=== PATIENT | female | born 1960 | race Hispanic/Latino ===

== ENCOUNTER 2017-12-15 13:36 | Emergency (ER) | payer MEDICARE ==
[2017-12-15 13:37] VITALS: BMI 26.6
[2017-12-15 13:53] VITALS: TEMP 97.9
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
[2017-12-15] MEDS: Albuterol-Ipratrop 3 mg / 0.5 (3 ml) UD IH STA ×2 (14:14→14:17)
[2017-12-15] MEDS ORDERED: Albuterol 0.083% Inhal Sol (2.5 mg/3 mL) UD INH STA (14:45)
--- NOTE | 2017-12-15 15:51 | RAD ---
HISTORY: Shortness of breath. COMPARISON: 03/26/2017 FINDINGS: LUNGS: No active pulmonary disease. PLEURA: No significant pleural effusion identified, no pneumothorax apparent. CARDIOVASCULAR: No radiographic findings to suggest acute or significant cardiovascular disease. OSSEOUS STRUCTURES: No significant abnormalities. VISUALIZED UPPER ABDOMEN: Normal. OTHER FINDINGS: None. IMPRESSION: No active disease. No significant interval change compared to the prior examination(s).
[2017-12-15 16:43] VITALS: BP 124/46; PULSE 77; RESP 14; O2SAT 96
--- NOTE | 2017-12-16 16:04 | CARD ---
APPROVED REPORT EKG Measurement Heart [id number] [id number] <Conclusion> Normal sinus rhythm Normal ECG
== END 2017-12-15 16:30 | disposition home or self-care (01) ==
LOC: ED 13:36
DX: J44.9 Chronic obstructive pulmonary disease, unspecified (principal); J98.01 Acute bronchospasm; Z87.891 Personal history of nicotine dependence
CPT/HCPCS: 71045; 93005; 96374; 99284; J2930

== ENCOUNTER 2018-02-25 08:50 | Inpatient (IN) | payer MEDICARE, OTHER ==
[2018-02-25 08:50] VITALS: BMI 26.6
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
[2018-02-25] MEDS: Albuterol-Ipratrop 3 mg / 0.5 (3 ml) UD IH SCH ×4 (09:13→09:44)
--- NOTE | 2018-02-25 09:32 | RAD ---
HISTORY: copd COMPARISON: 12/15/2017 FINDINGS: LUNGS: No active pulmonary disease. PLEURA: No significant pleural effusion identified, no pneumothorax apparent. CARDIOVASCULAR: Normal. OSSEOUS STRUCTURES: No significant abnormalities. VISUALIZED UPPER ABDOMEN: Normal. OTHER FINDINGS: None. IMPRESSION: No active disease.
[2018-02-25 09:39] LABS: BASO # 0.07 K/mm3 (0.0-2.0); BASO % 0.6 % (0.0-3.0); EOS # 0.7 (0.0-0.7); EOS % 5.7 % (1.5-5.0); GRAN # 6.45 (1.4-6.5); GRAN % 55.2 % (50.0-68.0); HEMOGLOBIN 13.9 g/dL (12.0-16.0); LYMPH # 3.8 (1.2-3.4); LYMPH % 32.8 % (22.0-35.0); MEAN CELL VOLUME 91.5 fl (80.0-105.0); MEAN CORPUSCULAR HEMOGLOBIN 30.2 pg (25.0-35.0); MEAN CORPUSCULAR HGB CONC 32.9 g/dl (31.0-37.0); MEAN PLATELET VOLUME 9.1 fl (7.0-11.0); MONO # 0.7 (0.1-0.6); MONO % 5.7 % (1.0-6.0); RBC 4.61 10^6/uL (3.5-6.1); RED CELL DISTRIBUTION WIDTH 13.4 % (11.5-14.5); WHITE BLOOD COUNT 11.7 10^3/ul (4.5-11.0)
[2018-02-25 09:47] LABS: BLOOD UREA NITROGEN 10 mg/dL (7-21); CALCIUM 9.1 mg/dL (8.4-10.5); GFR AFRICAN-AMERICAN > 60; GFR NON-AFRICAN AMERICAN > 60
--- NOTE | 2018-02-25 10:50 | CARD ---
APPROVED REPORT EKG Measurement Heart [id number] [place] 130P83 [id number] <Conclusion> Normal sinus rhythm Right atrial enlargement Rightward axis Pulmonary disease pattern Abnormal ECG
[2018-02-25] MEDS ORDERED: Albuterol 0.083% Inhal Sol (2.5 mg/3 mL) UD IH STA (10:52)
[2018-02-25] MEDS ORDERED: Albuterol 0.083% Inhal Sol (2.5 mg/3 mL) UD ONE (11:02)
[2018-02-25] MEDS ORDERED: Pneumococcal 23-Valent Vaccine IM ONE (16:30)
[2018-02-25] MEDS: Albuterol-Ipratrop 3 mg / 0.5 (3 ml) UD IH PRN ×2 (18:05→22:40)
[2018-02-25] MEDS ORDERED: Albuterol 0.083% Inhal Sol (2.5 mg/3 mL) UD IH PRN (22:41)
[2018-02-26] MEDS ORDERED: MethylPREDNISolone 40 mg Vial IVP STA (00:32)
[2018-02-26] MEDS: Albuterol 0.083% Inhal Sol (2.5 mg/3 mL) UD IH PRN ×2 (04:08→14:54)
[2018-02-26] MEDS: Pantoprazole 40 mg EC Tab PO SCH (05:41)
[2018-02-26 06:26] LABS: HEMOGLOBIN 12.5 g/dL (12.0-16.0); MEAN CORPUSCULAR HEMOGLOBIN 29.6 pg (25.0-35.0); MEAN CORPUSCULAR HGB CONC 32.9 g/dl (31.0-37.0); MEAN PLATELET VOLUME 9.1 fl (7.0-11.0); RBC 4.22 10^6/uL (3.5-6.1); RED CELL DISTRIBUTION WIDTH 13.5 % (11.5-14.5)
[2018-02-26 06:34] LABS: WHITE BLOOD COUNT 18.2 10^3/ul (4.5-11.0)
[2018-02-26 06:35] LABS: BLOOD UREA NITROGEN 12 mg/dL (7-21); CALCIUM 9.1 mg/dL (8.4-10.5); GFR AFRICAN-AMERICAN > 60; GFR NON-AFRICAN AMERICAN > 60; HDL CHOLESTEROL 58 mg/dL (29-60)
[2018-02-26 06:46] LABS: LDL CHOLESTEROL 68 mg/dL (0-129)
[2018-02-26] MEDS: Budesonide 0.5 mg/2 ml Inhal Susp UD IH SCH ×2 (07:51→20:56)
[2018-02-26] MEDS: Arformoterol 15 mcg/2 ml Inh Sol IH SCH ×2 (07:51→20:55)
[2018-02-26] MEDS: Tiotropium 18 mcg Cap For Inhalation IH SCH (09:30)
[2018-02-26] MEDS ORDERED: MethylPREDNISolone 40 mg Vial IVP SCH (10:00)
[2018-02-26] MEDS ORDERED: cefTRIAXone (Rocephin) 1 gm Inj IM SCH (10:00)
[2018-02-26] MEDS: cefTRIAXone 1 gm 1 GM/100 ML BAG IVPB SCH (10:40)
[2018-02-26] MEDS: guaiFENesin DM 100 mg-10 mg/5 ml UD PO PRN ×2 (10:41→18:19)
[2018-02-26] MEDS: MethylPREDNISolone 40 mg Vial IVP SCH (21:23)
--- NOTE | 2018-02-27 01:20 | CON ---
DATE: 02/26/2018 PULMONARY CONSULTATION REFERRING PHYSICIAN: Hilary Oliveira MD REASON FOR CONSULTATION: Chronic obstructive lung disease, with cough and shortness of breath. HISTORY OF PRESENT ILLNESS: This is a 57-year-old female well known to me from office and previous admission, noncompliant with followup, noncompliant with instruction, active smoker, smokes almost a pack a day, comes in with cough, shortness of breath, wheezing. No nausea, no vomiting. No diarrhea. No leg pain or leg swelling. PAST MEDICAL HISTORY: Significant for chronic obstructive lung disease, also has a history of GERD, chronic pain syndrome, degenerative joint disease, osteoporosis, history of splenectomy. FAMILY HISTORY: No significant cardiopulmonary disease reported. SOCIAL HISTORY: Active smoker. Denies any alcohol use. ALLERGIES: NONE KNOWN. MEDICATIONS: She is on albuterol/Atrovent nebulizer every 8 hours p.r.n., Brovana inhaled twice a day, Claritin 10 mg daily, Lipitor 10 mg daily, Neurontin 300 mg daily, Pepcid 40 mg daily, Protonix 40 mg daily, Pulmicort inhaled twice a day, Robitussin 5 mL every 4 hours p.r.n., Rocephin 1 g IV daily, Singulair 10 mg daily, Solu-Medrol 40 mg every 12 hours, Spiriva inhaled twice a day, Tylenol p.r.n. REVIEW OF SYSTEMS: No headache, no rhinitis. Has cough, shortness of breath, chest pain. No nausea, no vomiting. No diarrhea. No leg pain, no leg swelling. PHYSICAL EXAMINATION: GENERAL: [id number] distress. VITAL SIGNS: Temperature is 98, heart rate is 86, respiratory rate is 20, blood pressure 107/59, pulse ox 98% on 2 liters of nasal cannula. HEENT: Moist mucous membrane. Crowded airway. NECK: Supple. No JVD. LUNGS: Have bilateral wheezing, prolonged expiratory phase. HEART: S1 and S2. ABDOMEN: Soft, nontender. No organomegaly. EXTREMITIES: No edema. NEUROLOGIC: Awake,alert, follows simple commands. LABORATORY DATA: Shows hemoglobin 12.5, hematocrit 38.0, WBC 18.2, platelets 376. Sodium 141, potassium 3.9, chloride 109, bicarbonate 23, BUN 12, creatinine 0.6, glucose 130, calcium is 9.1, cholesterol 146. TSH 0.20. Chest x-ray done from ER shows no active pulmonary infiltrate. IMPRESSION AND PLAN: Chronic obstructive lung disease with exacerbation, also has essential tremors, active smoker, gastroesophageal reflux disease, chronic pain syndrome. Agree with Dr. Oliveira, with the present management. Continue IV and inhaled bronchodilator. Continue Singulair, add Daliresp 500 mcg daily, nicotine patch. Urged the patient to stop smoking. Spoke to the patient's son at bedside. All the questions answered. Thank you and we will follow with you. Tessa Boone MD
[2018-02-27] MEDS: Pantoprazole 40 mg EC Tab PO SCH (05:17)
[2018-02-27] MEDS: MethylPREDNISolone 40 mg Vial IVP SCH ×3 (05:17→21:40)
[2018-02-27] MEDS: guaiFENesin DM 100 mg-10 mg/5 ml UD PO PRN ×2 (05:20→21:48)
[2018-02-27 06:33] LABS: HEMOGLOBIN 12.8 g/dL (12.0-16.0); MEAN CELL VOLUME 91.7 fl (80.0-105.0); MEAN CORPUSCULAR HEMOGLOBIN 29.6 pg (25.0-35.0); MEAN CORPUSCULAR HGB CONC 32.2 g/dl (31.0-37.0); MEAN PLATELET VOLUME 9.3 fl (7.0-11.0); RBC 4.33 10^6/uL (3.5-6.1); RED CELL DISTRIBUTION WIDTH 13.8 % (11.5-14.5); WHITE BLOOD COUNT 20.6 10^3/ul (4.5-11.0)
[2018-02-27 07:12] LABS: ALB/GLOB RATIO 1.3 (1.1-1.8); ALBUMIN 3.7 g/dL (3.0-4.8); ALT/SGPT 25 U/L (7-56); AST/SGOT 28 U/L (14-36); BLOOD UREA NITROGEN 18 mg/dL (7-21); CALCIUM 9.4 mg/dL (8.4-10.5); GFR AFRICAN-AMERICAN > 60; GFR NON-AFRICAN AMERICAN > 60
[2018-02-27] MEDS: Budesonide 0.5 mg/2 ml Inhal Susp UD IH SCH ×2 (08:16→19:55)
[2018-02-27] MEDS: Arformoterol 15 mcg/2 ml Inh Sol IH SCH ×2 (08:16→19:55)
[2018-02-27] MEDS: cefTRIAXone 1 gm 1 GM/100 ML BAG IVPB SCH (09:23)
[2018-02-27] MEDS: Tiotropium 18 mcg Cap For Inhalation IH SCH (09:24)
[2018-02-27 14:59] LABS: URINE BILIRUBIN NEGATIVE (NEGATIVE); URINE BLOOD TRACE-INTACT (NEGATIVE); URINE GLUCOSE (UA) NEGATIVE (NEGATIVE); URINE LEUKOCYTE ESTERASE SMALL Leu/uL (NEGATIVE); URINE PROTEIN NEGATIVE mg/dL (<30 mg/dL); URINE UROBILINOGEN 0.2 E.U./dL (<1 E.U./dL)
[2018-02-27 15:00] LABS: URINE APPEARANCE CLEAR (CLEAR); URINE COLOR YELLOW (YELLOW)
[2018-02-27 15:07] LABS: URINE BACTERIA FEW (NEG)
--- NOTE | 2018-02-27 16:27 | PN ---
DATE: 02/26/2018 SUBJECTIVE: The patient was seen and examined on bedside on 02/26/2018. Still coughing, having shortness of breath, congested. No nausea, vomiting, diarrhea. No hematuria or hematochezia. No swelling of the leg. No fevers. PHYSICAL EXAMINATION: VITAL SIGNS: Temperature 97.6, pulse 102, blood pressure 150/67, respiratory rate 20. HEENT: Head normocephalic, atraumatic. Eyes PERRLA. Extraocular muscles intact. Conjunctivae clear. Nose patent. NECK: Supple. No carotid bruit. No JVD or thyromegaly. CHEST: Bilaterally symmetrical. LUNGS: Positive wheezing. ABDOMEN: Soft. Bowel sounds positive. No organomegaly. EXTREMITIES: No edema. No cyanosis. NEUROLOGICAL: The patient is awake and alert. Moving all 4 extremities. No focal deficits. LABORATORY DATA: White blood cell is 18.2, hemoglobin 12.5, hematocrit 38, platelet 376. Sodium 141, potassium 3.9, BUN 12, creatinine 0.6, glucose 130. MEDICATIONS: Albuterol, Brovana, Claritin, Daliresp, Lipitor, Neurontin, NicoDerm, Pepcid, Protonix, Rocephin, Tylenol, Spiriva, Solu-Medrol, Singulair. ASSESSMENT AND PLAN: Ms. Araceli Mulligan, 57-year-old lady with leukocytosis. Has chronic obstructive lung disease with exacerbation. Has essential tremors. Is under care of Dr. Doll as outpatient. Active smoker. Urged to quit smoking. Gastroesophageal reflux disease, chronic pain syndrome. Continue present treatment. I have length of time discussion done with the nurse. Instructed chest physical therapy to loose phlegm from the chest. Continue Singulair, Daliresp, nicotine patch for smoking. Discussion done with the patient's family. Repeat labs. Out of bed. Physical therapy. We will follow up. Hilary Oliveira MD
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
[2018-02-28] MEDS: Albuterol 0.083% Inhal Sol (2.5 mg/3 mL) UD IH PRN (02:20)
--- NOTE | 2018-02-28 03:53 | PN ---
DATE: 02/27/2018 PULMONARY PROGRESS NOTE REFERRING PHYSICIAN: Hilary Oliveira MD SUBJECTIVE: She is lying in the bed, feels a little better. Decreased cough. Decreased shortness of breath. No nausea, vomiting, diarrhea, leg pain or swelling. OBJECTIVE: GENERAL: In no acute distress. VITAL SIGNS: Temperature is 98, heart rate 69, respiratory rate is 18, blood pressure 120/62, pulse of 95% on 2 liters nasal cannula. HEENT: Moist mucous membrane. No ulcer or thrush. NECK: Supple. No JVD. LUNGS: Has a prolonged expiratory phase with some wheezing. HEART: S1 and S2. ABDOMEN: Soft, nontender. No organomegaly. EXTREMITIES: No edema. NEUROLOGIC: Awake and alert; follows simple command. MEDICATIONS: She is on albuterol/Atrovent nebulizer every 8 hours p.r.n., Brovana inhaled twice a day, Claritin 10 mg daily, Daliresp 500 mcg daily, Lipitor 10 mg daily, gabapentin 300 mg daily, Nicoderm patch daily, Pepcid 20 mg at bedtime, Protonix 40 mg daily, Pulmicort inhaled twice a day, Robitussin 5 mL every 4 hours p.r.n., Rocephin 1 g IV daily, Singulair 10 mg daily, Solu-Medrol 30 mg every 8 hours, Spiriva inhaled daily, Tylenol p.r.n. LABORATORY DATA: Reviewed and shows hemoglobin 12.8, hematocrit 39.7, WBC 20,000, platelet is 389. Sodium 144, potassium 4.3, chloride 108, bicarbonate 26, BUN 18, creatinine 0.7, glucose 113, calcium is 9.4, AST 28, ALT 25, alk phos is 76, albumin is 3.7. TSH 0.20. Chest x-ray shows no infiltrate or effusion. IMPRESSION AND PLAN: Chronic obstructive lung disease with exacerbation, also has essential tremors, active smoker, gastroesophageal reflux disease, chronic pain syndrome. Pulmonary point of view, doing okay. Continue IV and inhaled bronchodilator. Keep head at 45 degrees. Gastric prophylaxis. Fall precaution. The patient has to stop smoking. Thank you and we will follow with you. Tessa Boone MD
[2018-02-28] MEDS: MethylPREDNISolone 40 mg Vial IVP SCH (05:04)
--- NOTE | 2018-02-28 05:06 | PN ---
DATE: 02/27/2018 SUBJECTIVE: The patient was seen and examined at the bedside. Looking comfortable. No nausea, vomiting, or diarrhea. No hematuria or hematochezia. No swelling of the legs. Still coughing and having shortness of breath. No chest pain. No palpitation. PHYSICAL EXAMINATION: VITAL SIGNS: Temperature 98, pulse 59, blood pressure 130/62, respiratory rate 18. HEENT: Head: Normocephalic, atraumatic. Eyes: PERRLA. Extraocular muscles intact. Conjunctivae clear. Nose patent. Mucous membranes moist. NECK: Supple. No carotid bruit, JVD, or thyromegaly. CHEST: Bilaterally symmetrical. LUNGS: Positive wheezing bilaterally, but better. HEART: S1 and S2 positive. ABDOMEN: Soft. Bowel sounds positive. No organomegaly. EXTREMITIES: No edema. No cyanosis. NEUROLOGICAL: The patient is awake and alert. Moving all 4 extremities. No focal deficits. MEDICATIONS: Albuterol, Brovana, Claritin, Daliresp, Lipitor, Neurontin, Nicoderm, famotidine, Protonix, Pulmicort, Robitussin, Rocephin, Singulair, Solu-Medrol, Spiriva, and Tylenol. LABORATORY DATA: White blood cells 20.6, hemoglobin 12.8, hematocrit 39.7, platelets 389, sodium 144, potassium 4.3, BUN 18, creatinine 0.7, glucose 113. ASSESSMENT AND PLAN: Ms. Araceli Mulligan is a 57-year-old lady with leukocytosis, hyperchloremia, hyperglycemia, rule out hyperthyroidism, proteinuria, urinary tract infection, came with exacerbation of chronic obstructive pulmonary disease, asthma, history of hypercholesterolemia. Getting antibiotics, back in here for urinary tract infection and pulmonary problem, history of actively heavy smoker, gastroesophageal reflux disease, chronic pain syndrome. Continue IV and inhaled bronchodilators . Zyrtec also started, nicotine patch given, urged to quit smoking. Length of time discussion done with the patient. Tapering dose of steroid given. We will follow up. Hilary Oliveira MD JAELYN
[2018-02-28] MEDS: Pantoprazole 40 mg EC Tab PO SCH (05:09)
[2018-02-28 07:51] LABS: GRAN # 11.87 (1.4-6.5); GRAN % 85.6 % (50.0-68.0); HEMOGLOBIN 12.3 g/dL (12.0-16.0); LYMPH # 1.7 (1.2-3.4); LYMPH % 11.9 % (22.0-35.0); MEAN CELL VOLUME 92.3 fl (80.0-105.0); MEAN CORPUSCULAR HEMOGLOBIN 29.7 pg (25.0-35.0); MEAN CORPUSCULAR HGB CONC 32.2 g/dl (31.0-37.0); MEAN PLATELET VOLUME 9.7 fl (7.0-11.0); MONO # 0.4 (0.1-0.6); MONO % 2.5 % (1.0-6.0); RBC 4.14 10^6/uL (3.5-6.1); RED CELL DISTRIBUTION WIDTH 13.7 % (11.5-14.5); WHITE BLOOD COUNT 13.9 10^3/ul (4.5-11.0)
[2018-02-28] MEDS: Budesonide 0.5 mg/2 ml Inhal Susp UD IH SCH (08:09)
[2018-02-28] MEDS: Arformoterol 15 mcg/2 ml Inh Sol IH SCH (08:09)
[2018-02-28 08:46] VITALS: BP 104/60; PULSE 63; RESP 20; TEMP 98.4; O2SAT 96
[2018-02-28 09:24] LABS: PH,URINE 5.5 (4.7-8.0); URINE BILIRUBIN NEGATIVE (NEGATIVE); URINE BLOOD TRACE-INTACT (NEGATIVE); URINE GLUCOSE (UA) NEGATIVE (NEGATIVE); URINE LEUKOCYTE ESTERASE NEGATIVE Leu/uL (NEGATIVE); URINE PROTEIN NEGATIVE mg/dL (<30 mg/dL); URINE UROBILINOGEN 0.2 E.U./dL (<1 E.U./dL)
[2018-02-28 09:32] LABS: URINE APPEARANCE CLEAR (CLEAR); URINE COLOR YELLOW (YELLOW)
[2018-02-28] MEDS: cefTRIAXone 1 gm 1 GM/100 ML BAG IVPB SCH (09:32)
[2018-02-28] MEDS: Tiotropium 18 mcg Cap For Inhalation IH SCH (09:32)
[2018-02-28 09:33] LABS: URINE BACTERIA FEW (NEG); URINE WBC 0 - 2 /hpf (0-6)
[2018-02-28] MEDS ORDERED: Cefpodoxime (Vantin) 200 mg Tab PO SCH (10:00)
== END 2018-02-28 14:05 | disposition home or self-care (01) | DRG 191 ==
LOC: ED 08:50 → ERH 11:21 → 3RSO 13:34 → OBSVTOIN 02-26 15:50 → 3RSO 02-26 15:50
PROVIDERS: ADMIT Internal Medicine; ATTEND Internal Medicine
DX: J44.1 Chronic obstructive pulmonary disease with (acute) exacerbation (principal); N39.0 Urinary tract infection, site not specified; M81.0 Age-related osteoporosis without current pathological fracture; G25.0 Essential tremor; E78.00 Pure hypercholesterolemia, unspecified; G62.9 Polyneuropathy, unspecified; K21.9 Gastro-esophageal reflux disease without esophagitis; R73.9 Hyperglycemia, unspecified; G89.4 Chronic pain syndrome; M19.90 Unspecified osteoarthritis, unspecified site; E87.8 Other disorders of electrolyte and fluid balance, not elsewhere classified; F17.200 Nicotine dependence, unspecified, uncomplicated; Z90.81 Acquired absence of spleen

== ENCOUNTER 2018-11-19 08:57 | Outpatient (CLI) | payer MEDICARE | END 2018-11-19 08:58 | disposition home or self-care (01) | LOC: RAD 08:57 ==

== ENCOUNTER 2018-12-26 10:25 | Emergency (ER) | payer MEDICARE ==
[2018-12-26 10:25] VITALS: BMI 26.6
[2018-12-26 10:35] VITALS: RESP 16
--- NOTE | 2018-12-26 10:48 | ED PDOC ---
Arrival/HPI - General Chief Complaint: Trauma Historian: Patient - History of Present Illness Narrative History of Present Illness (Text): 12/26/18 10:45 58yo female with pmhx of COPD and tremors who present with complaint of right sided hip and hand pain s/p trauma this morning. States she slipped while putting groceries in her car and landed on her buttocks. Denies hitting her head anywhere. States she was able to ambulate s/p. did not take any medication. Denies focal weakness, headache, LOC, dizziness, saddle anesthesia, fecal/urinary incontinence, any other complaint. Past Medical History - Provider Review Nursing Documentation Reviewed: Yes - Infectious Disease Hx of Infectious Diseases: None - Tetanus Immunization Tetanus Immunization: Unknown - Cardiac Hx Cardiac Disorders: Yes - Pulmonary Hx Respiratory Disorders: Yes Hx Chronic Obstructive Pulmonary Disease (COPD): Yes - Neurological Hx Neurological Disorder: Yes (neuropathy) Other/Comment: NUMBNESS AND TREMORS TO HANDS - HEENT Hx HEENT Disorder: No - Renal Hx Renal Disorder: No - Endocrine/Metabolic Hx Endocrine Disorders: No - Hematological/Oncological Hx Blood Disorders: No - Integumentary Hx Dermatological Disorder: Yes - Musculoskeletal/Rheumatological Hx Musculoskeletal Disorders: Yes Hx Arthritis: Yes - Gastrointestinal Hx Gastrointestinal Disorders: Yes Hx Constipation: Yes - Genitourinary/Gynecological Hx Genitourinary Disorders: No - Psychiatric Hx Psychophysiologic Disorder: No Hx Substance Use: No - Surgical History Hx Splenectomy: Yes - Anesthesia Hx Anesthesia: Yes Hx Anesthesia Reactions: No Hx Malignant Hyperthermia: No - Suicidal Assessment Feels Threatened In Home Enviroment: No Family/Social History - Physician Review Nursing Documentation Reviewed: Yes Family/Social History: Unknown Family HX Smoking Status: Heavy Smoker > 10 Cigarettes Daily Hx Alcohol Use: No Hx Substance Use: No Hx Substance Use Treatment: No Allergies/Home Meds Allergies/Adverse Reactions: Allergies No Known Allergies Allergy (Verified 12/26/18 10:27) Home Medications: Home Meds Medication Instructions Recorded Confirmed RX: Albuterol Sulfate [Proair Hfa] 2 puff IH TID PRN 02/25/18 12/26/18 RX: Atorvastatin [Lipitor] 1 tab PO HS 02/25/18 12/26/18 RX: Gabapentin [Neurontin] 1 cap PO DAILY 02/25/18 12/26/18 RX: Montelukast [Singulair] 1 tab PO DAILY 02/25/18 12/26/18 Review of Systems - Physician Review All systems were reviewed & negative as marked: Yes - Review of Systems Constitutional: Normal Eyes: Normal ENT: Normal Respiratory: Normal Cardiovascular: Normal Gastrointestinal: Normal Genitourinary Female: Normal Musculoskeletal: Arthralgias (Right hip/hand) Skin: Normal Neurological: Normal Endocrine: Normal Hemo/Lymphatic: Normal Psychiatric: Normal Physical Exam Vital Signs Reviewed: Yes Vital Signs Temp Pulse Resp BP Pulse Ox 12/26/18 10:30 97.1 F L 93 H 16 125/82 96 Temperature: Afebrile Blood Pressure: Normal Pulse: Regular Respiratory Rate: Normal Appearance: Positive for: Well-Appearing, Non-Toxic, Comfortable Pain Distress: None Mental Status: Positive for: Alert and Oriented X 3 - Systems Exam Head: Present: Atraumatic, Normocephalic Pupils: Present: PERRL Extroacular Muscles: Present: EOMI Conjunctiva: Present: Normal Mouth: Present: Moist Mucous Membranes Neck: Present: Normal Range of Motion Respiratory/Chest: Present: Clear to Auscultation, Good Air Exchange. No: Respiratory Distress, Accessory Muscle Use Cardiovascular: Present: Regular Rate and Rhythm, Normal S1, S2. No: Murmurs Abdomen: No: Tenderness, Distention, Peritoneal Signs Back: Present: Normal Inspection Upper Extremity: Present: Normal Inspection, Normal ROM, NORMAL PULSES, Neurovascularly Intact. No: Cyanosis, Edema, Tenderness, Deformity Lower Extremity: Present: Normal Inspection, NORMAL PULSES, Normal ROM, Neurovascularly Intact. No: Edema, Tenderness, Swelling Neurological: Present: GCS=15, CN II-XII Intact, Speech Normal Skin: Present: Warm, Dry, Normal Color. No: Rashes Psychiatric: Present: Alert, Oriented x 3, Normal Insight, Normal Concentration Medical Decision Making ED Course and Treatment: 12/26/18 13:48 58yo female who present with right hip/hand pain s/p trauma this morning. She had FROM in ED. Notes pain with movement. No palpable tenderness. B/L hip xray - No acute fracture Right hand xray - No acute fracture PT was ambulatory with normal gait in ED. Result was DW the pt and she was DC home with Tramadol. Referred to ortho. TRT ED for any new symptoms - RAD Interpretation Radiology Orders: 12/26/18 10:44 HAND RIGHT 3 VIEWS [RAD] Stat Hip Bilateral [HIP MIN 3V W/ PELVIS MCKENZIE] [RAD] Stat - Medication Orders Current Medication Orders: Ketorolac Tromethamine (Toradol) 30 mg IM STAT STA Stop: 12/26/18 10:46 Disposition/Present on Arrival - Present on Arrival Any Indicators Present on Arrival: No History of DVT/PE: No History of Uncontrolled Diabetes: No Urinary Catheter: No History of Decub. Ulcer: No History Surgical Site Infection Following: None - Disposition Have Diagnosis and Disposition been Completed?: Yes Diagnosis: Hip pain, Hand pain Disposition: HOME/ ROUTINE Disposition Time: 12:15 Patient Plan: Discharge Condition: STABLE Discharge Instructions (ExitCare): Hip Pain, Hand Pain (DC) Additional Instructions: Follow up with your Doctor/Orthopedist Return to ED for any new or worsening symptoms Prescriptions: RX: traMADol [Ultram] 50 mg PO Q6 #8 tab Referrals: Vinh Tom DO [Staff Provider] - Follow up with primary Forms: [employer] (Yoruba)
--- NOTE | 2018-12-26 12:40 | RAD ---
PROCEDURE: Radiographs of the pelvis and bilateral hips HISTORY: right hip pain s/p trauma COMPARISON: None. FINDINGS: BONES: Pelvis: Unremarkable. Right hip:Unremarkable. Left hip:Unremarkable. JOINTS: Right hip: Moderate degenerative changes with joint space narrowing and bony sclerosis Left hip: Unremarkable. Sacroiliac Joints: Unremarkable. Pubic symphysis: Unremarkable. SOFT TISSUES: Normal. OTHER FINDINGS: None. IMPRESSION: Moderate degenerative changes in the right hip.
--- NOTE | 2018-12-26 12:41 | RAD ---
PROCEDURE: Right Hand Radiographs. HISTORY: hand pain s/p trauma COMPARISON: None. FINDINGS: BONES: Normal. No fracture. JOINTS: Normal. No osteoarthritic changes. SOFT TISSUES: Normal. OTHER FINDINGS: None. IMPRESSION: Normal right hand radiographs.
[2018-12-26 12:51] VITALS: BP 105/54; PULSE 82; TEMP 97.4; O2SAT 95
== END 2018-12-26 12:51 | disposition home or self-care (01) ==
LOC: ED 10:25
DX: M25.551 Pain in right hip (principal); M79.641 Pain in right hand; F17.210 Nicotine dependence, cigarettes, uncomplicated; J44.9 Chronic obstructive pulmonary disease, unspecified
CPT/HCPCS: 73130; 73522; 96372; 99285; J1885

== ENCOUNTER 2019-01-19 10:20 | Outpatient (CLI) | payer MEDICARE | END 2019-01-19 10:21 | disposition home or self-care (01) | LOC: RAD 10:21 ==

== ENCOUNTER 2019-02-28 11:49 | Inpatient (IN) | payer MEDICARE, OTHER ==
[2019-02-28 11:51] VITALS: BMI 23.6
[2019-02-28] MEDS ORDERED: Albuterol-Ipratrop 3 mg / 0.5 (3 ml) UD IH STA (12:04)
[2019-02-28] MEDS ORDERED: Albuterol-Ipratrop 3 mg / 0.5 (3 ml) UD ONE (12:07)
--- NOTE | 2019-02-28 12:14 | ED PDOC ---
Arrival/HPI - General Time Seen by Provider: 02/28/19 11:55 Historian: Patient - History of Present Illness Narrative History of Present Illness (Text): 02/28/19 12:09 A 58 year old female, whose past medical history includes COPD, presents to the emergency department complaining of shortness of breath and wheezing since yesterday. Patient denies any URI symptoms, cough, sputum, chest pain, fever, chills, or any other complaints at this time. Also, patient mentions she uses a nebulizer at home, however she recently ran out of her medication. Notes she smokes 1 pack daily, occasionally consumes alcohol, and denies any history of substance abuse. Time/Duration: 24 hours Past Medical History - Provider Review Nursing Documentation Reviewed: Yes - Infectious Disease Hx of Infectious Diseases: None - Tetanus Immunization Tetanus Immunization: Unknown - Cardiac Hx Cardiac Disorders: Yes - Pulmonary Hx Respiratory Disorders: Yes Hx Chronic Obstructive Pulmonary Disease (COPD): Yes - Neurological Hx Neurological Disorder: Yes (neuropathy) Other/Comment: NUMBNESS AND TREMORS TO HANDS - HEENT Hx HEENT Disorder: No - Renal Hx Renal Disorder: No - Endocrine/Metabolic Hx Endocrine Disorders: No - Hematological/Oncological Hx Blood Disorders: No - Integumentary Hx Dermatological Disorder: Yes - Musculoskeletal/Rheumatological Hx Musculoskeletal Disorders: Yes Hx Arthritis: Yes - Gastrointestinal Hx Gastrointestinal Disorders: Yes Hx Constipation: Yes - Genitourinary/Gynecological Hx Genitourinary Disorders: No - Psychiatric Hx Psychophysiologic Disorder: No Hx Substance Use: No - Surgical History Hx Splenectomy: Yes - Anesthesia Hx Anesthesia: Yes Hx Anesthesia Reactions: No Hx Malignant Hyperthermia: No - Suicidal Assessment Feels Threatened In Home Enviroment: No Family/Social History - Physician Review Nursing Documentation Reviewed: Yes Family/Social History: No Known Family HX Smoking Status: Heavy Smoker > 10 Cigarettes Daily Hx Alcohol Use: No Hx Substance Use: No Hx Substance Use Treatment: No Allergies/Home Meds Allergies/Adverse Reactions: Allergies No Known Allergies Allergy (Verified 02/28/19 11:51) Home Medications: Home Meds Medication Instructions Recorded Confirmed Albuterol Sulfate [Proair Hfa] 2 puff IH TID PRN 02/25/18 02/28/19 Atorvastatin [Lipitor] 1 tab PO HS 02/25/18 02/28/19 Gabapentin [Neurontin] 1 cap PO DAILY 02/25/18 02/28/19 Montelukast [Singulair] 1 tab PO DAILY 02/25/18 02/28/19 Review of Systems - Physician Review All systems were reviewed & negative as marked: Yes - Review of Systems Constitutional: absent: Fevers, Night Sweats Respiratory: SOB, Wheezing. absent: Cough, Sputum Cardiovascular: absent: Chest Pain Physical Exam Vital Signs Reviewed: Yes Vital Signs Temp Pulse Resp BP Pulse Ox 02/28/19 11:55 97.6 F 114 H 20 141/94 H 95 Temperature: Afebrile Blood Pressure: Normal Pulse: Regular Respiratory Rate: Normal Appearance: Positive for: Well-Appearing, Non-Toxic, Comfortable Pain Distress: None Mental Status: Positive for: Alert and Oriented X 3 - Systems Exam Head: Present: Atraumatic, Normocephalic Neck: Present: Normal Range of Motion Respiratory/Chest: Present: Wheezes (moderate bilateral posterior and anterior wheezing.) Cardiovascular: Present: Regular Rate and Rhythm, Normal S1, S2. No: Murmurs Abdomen: No: Tenderness, Distention, Peritoneal Signs Back: Present: Normal Inspection Upper Extremity: Present: Normal Inspection. No: Cyanosis, Edema Lower Extremity: Present: Normal Inspection. No: Edema Neurological: Present: GCS=15, CN II-XII Intact, Speech Normal Skin: Present: Warm, Dry, Normal Color. No: Rashes Psychiatric: Present: Alert, Oriented x 3, Normal Insight, Normal Concentration Medical Decision Making ED Course and Treatment: 02/28/19 12:11 Impression: 58 year old female with shortness of breath and wheezing. Physical exam shows moderate bilateral posterior and anterior wheezing; no other acute findings on physical examination. Plan: -- EKG -- Chest X-ray -- Labs -- Duoneb -- SOLU-Medrol -- Reassess and disposition Progress Notes: 02/28/2019 12:30 Chest X-ray IMPRESSION: No active disease. Dictator: Avelino Lynch MD 02/28/19 13:46 Patient is feeling mildly improved, but does not feel as if she can go home. - Lab Interpretations I have reviewed the lab results: Yes - RAD Interpretation Radiology Orders: 02/28/19 12:04 CHEST PORTABLE [RAD] Stat Chest one view shows atelectasis with no infiltrate effusion or cardiomegaly. Outsole Scheduler: Radiologist - Medication Orders Current Medication Orders: Discontinued Medications Albuterol/Ipratropium (Duoneb 3 Mg/0.5 Mg (3 Ml) Ud) 3 ml IH STAT STA Stop: 02/28/19 12:05 Methylprednisolone (Solu-Medrol) 125 mg IVP STAT STA Stop: 02/28/19 12:05 - Scribe Statement The provider has reviewed the documentation as recorded by the Ivan Cuenca Provider Scribe Attestation: All medical record entries made by the Linwoodibroyce were at my direction and personally dictated by me. I have reviewed the chart and agree that the record accurately reflects my personal performance of the history, physical exam, medical decision making, and the department course for this patient. I have also personally directed, reviewed, and agree with the discharge instructions and disposition. Disposition/Present on Arrival - Present on Arrival Any Indicators Present on Arrival: No History of DVT/PE: No History of Uncontrolled Diabetes: No Urinary Catheter: No History of Decub. Ulcer: No History Surgical Site Infection Following: None - Disposition Have Diagnosis and Disposition been Completed?: Yes Diagnosis: COPD exacerbation Disposition: HOSPITALIZED Disposition Time: 13:46 Patient Plan: Observation Condition: GOOD
[2019-02-28 12:28] LABS: BASO # 0.05 {null, K/mm3} (0.0-2.0); BASO % 0.7 % (0.0-3.0); EOS % 0.4 % (1.5-5.0); HEMOGLOBIN 13.8 g/dL (12.0-16.0); LYMPH # 1.8 (1.2-3.4); LYMPH % 23.5 % (22.0-35.0); MEAN CORPUSCULAR HEMOGLOBIN 29.2 pg (25.0-35.0); MEAN CORPUSCULAR HGB CONC 32.9 g/dl (31.0-37.0); MEAN PLATELET VOLUME 9.7 fl (7.0-11.0); MONO # 0.7 (0.1-0.6); MONO % 8.8 % (1.0-6.0); RBC 4.72 {null, 10^6/uL} (3.5-6.1); RED CELL DISTRIBUTION WIDTH 14.2 % (11.5-14.5); WHITE BLOOD COUNT 7.5 {null, 10^3/uL} (4.5-11.0)
--- NOTE | 2019-02-28 12:34 | RAD ---
Date of service: 02/28/2019 HISTORY: sob COMPARISON: Chest radiograph dated 02/25/2018. TECHNIQUE: 1 view obtained. FINDINGS: LUNGS: No active pulmonary disease. PLEURA: Biapical pleural-parenchymal scarring. No significant pleural effusion identified, no pneumothorax apparent. CARDIOVASCULAR: Aortic atherosclerotic calcifications. Cardiomediastinal silhouette within normal limits. OSSEOUS STRUCTURES: Unchanged. VISUALIZED UPPER ABDOMEN: Normal. OTHER FINDINGS: None. IMPRESSION: No active disease.
[2019-02-28 12:39] LABS: ALB/GLOB RATIO 1.2 (1.1-1.8); ALBUMIN 4.1 g/dL (3.0-4.8); ALT/SGPT 18 U/L (7-56); AST/SGOT 16 U/L (14-36); BLOOD UREA NITROGEN 7 mg/dL (7-21); GFR NON-AFRICAN AMERICAN > 60
[2019-02-28 12:53] LABS: TROPONIN I < 0.01 ng/mL
[2019-02-28] MEDS ORDERED: Albuterol 0.083% Inhal Sol (2.5 mg/3 mL) UD ONE (13:21)
[2019-02-28] MEDS ORDERED: Albuterol 0.083% Inhal Sol (2.5 mg/3 mL) UD INH STA (13:32)
--- NOTE | 2019-02-28 15:00 | CARD ---
APPROVED REPORT Date of service: 02/28/2019 EKG Measurement Heart [id number] <Conclusion> Sinus tachycardia Otherwise normal ECG
[2019-02-28] MEDS: Pantoprazole 20 mg EC Tab PO SCH (17:18)
[2019-02-28] MEDS ORDERED: Pneumococcal 23-Valent Vaccine IM ONE (17:39)
[2019-02-28 17:45] LABS: BASO # 0.01 {null, K/mm3} (0.0-2.0); BASO % 0.2 % (0.0-3.0); LYMPH # 0.5 (1.2-3.4); LYMPH % 7.6 % (22.0-35.0); MEAN CELL VOLUME 88.8 fl (80.0-105.0); MEAN CORPUSCULAR HEMOGLOBIN 29.1 pg (25.0-35.0); MEAN CORPUSCULAR HGB CONC 32.7 g/dl (31.0-37.0); MEAN PLATELET VOLUME 9.1 fl (7.0-11.0); MONO # 0.1 (0.1-0.6); MONO % 0.9 % (1.0-6.0); PLATELET COUNT 331 {null, 10^3/uL} (120.0-450.0); RBC 4.47 {null, 10^6/uL} (3.5-6.1); RED CELL DISTRIBUTION WIDTH 14.1 % (11.5-14.5); WHITE BLOOD COUNT 6.5 {null, 10^3/uL} (4.5-11.0)
[2019-02-28 17:49] LABS: HDL CHOLESTEROL 57 mg/dL (29-60)
[2019-02-28 18:00] LABS: LDL CHOLESTEROL 77 mg/dL (0-129)
[2019-02-28 18:01] LABS: B-TYPE NATRIURETIC PEPTIDE 100 pg/mL (0-450); TROPONIN I < 0.01 ng/mL
[2019-02-28 18:15] LABS: LYMPHOCYTE 6 % (22.0-35.0); MONOCYTE 2 % (1.0-6.0); NEUTROPHIL 92 % (50.0-70.0); PLATELET ESTIMATE NORMAL (NORMAL)
[2019-02-28 18:16] LABS: ANISOCYTOSIS SLIGHT
[2019-02-28] MEDS: Albuterol-Ipratrop 3 mg / 0.5 (3 ml) UD IH SCH ×2 (18:38→19:00)
[2019-02-28] MEDS: MethylPREDNISolone 40 mg Vial IVP SCH (21:54)
[2019-03-01] MEDS: Albuterol-Ipratrop 3 mg / 0.5 (3 ml) UD IH SCH ×4 (02:14→12:30)
[2019-03-01] MEDS: Pantoprazole 20 mg EC Tab PO SCH ×2 (06:31→17:16)
[2019-03-01 08:26] LABS: ALB/GLOB RATIO 1.2 (1.1-1.8); ALBUMIN 3.9 g/dL (3.0-4.8); ALT/SGPT 11 U/L (7-56); AST/SGOT 17 U/L (14-36); BLOOD UREA NITROGEN 15 mg/dL (7-21); CALCIUM 9.2 mg/dL (8.4-10.5); GFR NON-AFRICAN AMERICAN > 60
[2019-03-01] MEDS: MethylPREDNISolone 40 mg Vial IVP SCH ×2 (10:19→18:28)
[2019-03-01] MEDS: Azithromycin 500MG/NS 250ml 500 MG/250 ML BAG IVPB SCH (10:20)
[2019-03-01 15:00] LABS: BARBITURATES, UR POSITIVE (NEGATIVE); BENZODIAZEPINES, UR NEGATIVE (NEGATIVE); OPIATES, UR NEGATIVE (NEGATIVE); PHENCYCLIDINE, UR NEGATIVE (NEGATIVE)
[2019-03-01] MEDS ORDERED: Acetylcysteine 20% Inhal Sol (30ml) INH SCH (17:45)
[2019-03-01] MEDS: buPROPion SR 150 MG TABLET PO SCH (18:28)
[2019-03-01] MEDS: Ipratropium 0.02% Inhal Soln (0.5 mg/2.5 ml) UD IH SCH (18:41)
[2019-03-01] MEDS: Levalbuterol 0.63 MG/3 ML Inhal Soln UD IH SCH (18:41)
[2019-03-01] MEDS: Budesonide 0.5 mg/2 ml Inhal Susp UD IH SCH ×2 (18:42→21:00)
[2019-03-02] MEDS: MethylPREDNISolone 40 mg Vial IVP SCH ×4 (00:08→18:34)
--- NOTE | 2019-03-02 01:47 | CON ---
DATE: 03/01/2019 PULMONARY CONSULTATION REFERRING PHYSICIAN: Hilary Oliveira MD. REASON FOR CONSULTATION: Exacerbation of chronic lung disease, cough and shortness of breath. HISTORY OF PRESENT ILLNESS: This is a 58-year-old female well known to me from office and a previous admission, noncompliant with followup, active smoker. Carries diagnosis of chronic obstructive lung disease, GERD, chronic pain syndrome, degenerative joint disease, history of splenectomy, osteoporosis, comes in with a cough, shortness of breath, sputum production, has essential tremors. No nausea or vomiting. No diarrhea. No leg pain or leg swelling. PAST MEDICAL HISTORY: As per history of present illness. ALLERGY: NONE KNOWN. SOCIAL HISTORY: An ex smoker. Denying any alcohol use. FAMILY HISTORY: No significant cardiopulmonary disease reported. MEDICATIONS: She is on aspirin 81 mg daily, Ativan 2 mg every 6 hours p.r.n. for anxiety, Colace 100 mg twice a day. She is getting DuoNeb every 6 hours around the clock, hydrochlorothiazide 25 mg daily, Lipitor 10 mg daily, Neurontin 300 mg daily, Nicoderm patches 21 mg daily, Singular 10 mg daily, Solu-Medrol 40 mg every 12 hours, Zithromax 500 mg daily. REVIEW OF SYSTEMS: No headache, no rhinitis. Has cough, shortness of breath and wheezing. No nausea, no vomiting, no diarrhea. No leg pain or leg swelling. She does have essential tremors. PHYSICAL EXAMINATION GENERAL: [id number] distress. VITAL SIGNS: Temperature is 98, heart rate 102, respiratory rate is 24, blood pressure 126/62, pulse ox 94% on 2 liters nasal canula. HEENT: Moist mucous membranes. Crowded airway. NECK: Supple. No JVD. LUNGS: Have diffuse wheezing. HEART: S1 and S2. ABDOMEN: Soft, nontender. No organomegaly. EXTREMITIES: No edema. NEUROLOGIC: Awake, alert, follows simple commands. LABORATORY DATA: Shows hemoglobin is 13, hematocrit 39.7, WBC 6.5, platelet count is 331. Drug screen is positive for barbiturates. Chest x-ray; there is no infiltrate. IMPRESSION AND PLAN: Chronic obstructive lung disease with exacerbation, has essential tremor, active smoker, gastroesophageal reflux disease, chronic pain syndrome. I spoke to nursing staff. and Nicoderm patch. We will discontinue albuterol and add Xopenex nebulizer with Mucomyst and steroids. May change Ativan to 1 mg p.o. every 6 hours p.r.n. Gastric prophylaxis, deep venous thrombosis prophylaxis. The patient is urged to stop smoking. Tessa Boone MD
[2019-03-02] MEDS ORDERED: Levalbuterol 0.63 MG/3 ML Inhal Soln UD IH ONE (02:45)
[2019-03-02] MEDS: Pantoprazole 20 mg EC Tab PO SCH ×2 (06:23→18:33)
[2019-03-02] MEDS: Levalbuterol 0.63 MG/3 ML Inhal Soln UD IH SCH ×3 (07:51→20:00)
[2019-03-02] MEDS: Ipratropium 0.02% Inhal Soln (0.5 mg/2.5 ml) UD IH SCH ×3 (07:51→19:59)
[2019-03-02] MEDS: Budesonide 0.5 mg/2 ml Inhal Susp UD IH SCH ×2 (07:51→19:59)
[2019-03-02] MEDS: Acetylcysteine 20% Inhal Soln (4ml) INH SCH ×2 (07:51→19:59)
[2019-03-02] MEDS: buPROPion SR 150 MG TABLET PO SCH ×2 (10:02→18:33)
[2019-03-02] MEDS: Azithromycin 500MG/NS 250ml 500 MG/250 ML BAG IVPB SCH (10:02)
--- NOTE | 2019-03-02 14:15 | CP.PCM.APN ---
Subjective - Date & Time of Evaluation Date of Evaluation: 03/02/19 Time of Evaluation: 09:45 - Subjective Subjective: Pt. seen and examined. States always with cough, states breathing is better, is with wheezes, rhales. Objective - Vital Signs/Intake and Output Vital Signs (last 24 hours): Temp Pulse Resp BP Pulse Ox 98.1 F 91 H 24 110/64 94 L 03/02/19 08:21 03/02/19 08:21 03/02/19 08:21 03/02/19 08:21 03/02/19 08:21 Intake and Output: 03/02/19 03/02/19 06:59 18:59 Intake Total 960 0 Output Total 1 Balance 960 -1 - Medications Medications: Current Medications Acetylcysteine (Acetylcysteine 20%) 3 ml INH 0730,1530,2330 [facility] Last Admin: 03/02/19 07:51 Dose: 3 ml Aspirin (Aspirin Chewable) 81 mg PO DAILY [facility] Last Admin: 03/02/19 10:02 Dose: 81 mg Atorvastatin Calcium (Lipitor) 10 mg PO DIN [facility] Last Admin: 03/01/19 17:16 Dose: 10 mg Budesonide (Pulmicort Respules) 0.5 mg IH 0730,1530,2330 [facility] Last Admin: 03/02/19 07:51 Dose: 0.5 mg Bupropion HCl (Wellbutrin Sr 150 Mg) 150 mg PO BID [facility] Last Admin: 03/02/19 10:02 Dose: 150 mg Docusate Sodium (Colace) 100 mg PO BID [facility] Last Admin: 03/02/19 10:01 Dose: 100 mg Enoxaparin Sodium (Lovenox) 40 mg SC DAILY [facility]; Protocol Gabapentin (Neurontin) 300 mg PO DAILY [facility]; Protocol Last Admin: 03/02/19 10:02 Dose: 300 mg Hydrochlorothiazide (Hydrodiuril) 25 mg PO DAILY [facility] Last Admin: 03/02/19 10:02 Dose: 25 mg Azithromycin (Zithromax 500mg In Ns) 500 mg in 250 mls @ 167 mls/hr IVPB DAILY [facility]; Protocol Stop: 03/05/19 23:59 Last Admin: 03/02/19 10:02 Dose: 167 mls/hr Ipratropium Alpha (Atrovent) 0.5 mg IH TIDRESP [facility] Last Admin: 03/02/19 13:27 Dose: 0.5 mg Levalbuterol HCl (Xopenex) 0.63 mg IH TIDRESP [facility] Last Admin: 03/02/19 13:28 Dose: 0.63 mg Lorazepam (Ativan) 1 mg PO Q6H PRN; Protocol PRN Reason: Anxiety Last Admin: 03/02/19 13:33 Dose: 1 mg Methylprednisolone (Solu-Medrol) 40 mg IVP Q6 [facility] Last Admin: 03/02/19 13:08 Dose: 40 mg Montelukast Sodium (Singulair) 10 mg PO DAILY [facility] Last Admin: 03/02/19 10:02 Dose: 10 mg Nicotine (Nicoderm Cq) 1 patch TD DAILY [facility] Last Admin: 03/02/19 10:03 Dose: 1 patch Pantoprazole Sodium (Protonix Ec Tab) 20 mg PO 0600,1600 [facility] Last Admin: 03/02/19 06:23 Dose: 20 mg - Labs Labs: 02/28/19 17:30 03/01/19 07:00 - Constitutional Appears: Well, Non-toxic - Head Exam Head Exam: NORMOCEPHALIC - Eye Exam Eye Exam: Normal appearance Pupil Exam: NORMAL ACCOMODATION - ENT Exam ENT Exam: Normal Exam - Neck Exam Neck Exam: Full ROM - Respiratory Exam Respiratory Exam: Rales, Wheezes - Cardiovascular Exam Cardiovascular Exam: REGULAR RHYTHM - GI/Abdominal Exam GI & Abdominal Exam: Soft, Normal Bowel Sounds - Rectal Exam Rectal Exam: Deferred - Exam Exam: absent: Circumcision, NORMAL INSPECTION, Scrotal Swelling, Testicular Tenderness, Uretheral Discharge, Testicular Vertical Lie, Bladder Distension External exam: absent: Ecchymosis, Erythema, Lacerations, Lesions, NORMAL EXTERNAL EXAM, Swelling Speculum exam: absent: Cervical Discharge, Erythema, Foreign Body, Laceration, NORMAL SPECULUM EXAM, Tissue, Vaginal Bleeding, Vaginal Discharge Bimanual exam: absent: Adenexal Mass, Adnexal, Cervical Motion Tendernes, NORMAL BIMANUAL EXAM, Uterine Enlargement, Uterine Tenderness - Extremities Exam Extremities Exam: Full ROM - Back Exam Back Exam: NORMAL INSPECTION - Neurological Exam Neurological Exam: Alert, Awake, Oriented x3 - Psychiatric Exam Psychiatric exam: Normal Affect, Normal Mood - Skin Skin Exam: Dry, Intact, Normal Color, Warm Assessment and Plan - Assessment and Plan (Free Text) Assessment: ITS Impressions Chest X-Ray 02/28/19 12:04 IMPRESSION: No active disease. Assessment: 58 year old female, whose past medical history includes COPD, presents to the emergency department complaining of shortness of breath and wheezing since yesterday, admitted with COPD eval for further eval and treatment. Plan: 1. COPD exac. steroid weaning, bronchodilators per pulmonology. Continue to monitor resp and clinical status.
--- NOTE | 2019-03-02 14:23 | PN ---
DATE: 03/02/2019 PULMONARY PROGRESS NOTE REFERRING PHYSICIAN: Hilary Oliveira MD. SUBJECTIVE: The patient is seen sitting up at bedside. No acute distress. No overnight events reported. Reports that she still has some cough, shortness of breath, still has some wheezing. No headache, rhinitis, chest pain, abdominal pain, nausea, vomiting, diarrhea, leg pain or leg swelling reported. OBJECTIVE: GENERAL: No acute distress. VITAL SIGNS: Blood pressure 110/64, pulse 91, temperature 98.1, oxygen saturation 94%. HEENT: Moist mucous membranes. Crowded airway. NECK: Supple. No JVD. LUNGS: Diffuse wheezing bilaterally, few rhonchi. CARDIOVASCULAR: S1 and S2. ABDOMEN: Soft and nontender. No distention. No organomegaly. EXTREMITIES: No bilateral lower extremity edema. NEUROLOGIC: Awake, alert, and verbal. Following commands. MEDICATIONS: Reviewed. Mucomyst 3 mL inhalation 3 times a day, aspirin 81 mg daily, Lipitor 10 mg at dinner, Zithromax 500 mg daily, Pulmicort 0.5 mg inhalation 3 times a day, Wellbutrin 150 mg twice a day, Colace 100 mg twice a day, Neurontin 300 mg daily, hydrochlorothiazide 25 mg daily, Atrovent 0.5 mg inhalation 3 times a day, Xopenex 0.63 mg inhalation 3 times a day, Ativan 1 mg every 6 hours p.r.n., Solu-Medrol 40 mg IV push every 6 hours, Singulair 10 mg daily, nicotine patch transdermal daily, Protonix 20 mg twice a day. LABORATORY DATA: Reviewed. Blood cultures preliminary no growth after 24 hours. IMPRESSION AND PLAN: Chronic obstructive lung disease exacerbation, essential tremor, active smoker, gastroesophageal reflux disease, chronic pain syndrome. Continue Nicoderm patch, encourage smoking cessation. Continue inhaled bronchodilators, steroids, leukotriene inhibitors, gastric prophylaxis. We will place the patient on Lovenox for deep venous thrombosis prophylaxis. We recommend the patient have full pulmonary function test to evaluate extent of chronic lung disease. This patient was seen and examined with Dr. Boone. Discussed assessment and plan as described above. This patient was seen and examined with Deshawn Willoughby, nurse practitioner. Discussed assessment and plan as described above. Thank you for this consult and we will follow with you. Deshawn Willoughby APN Tessa Boone MD [facility] # [id number] JAELYN
--- NOTE | 2019-03-02 20:28 | PN ---
DATE: 03/02/2019 SUBJECTIVE: The patient is a 58-year-old female. The patient was seen and examined at bedside, 03/02/2019. Looking comfortable. Still coughing and shortness of breath. Having tremors and shaking her head. No fever. No chills. No hematuria. No hematochezia. No headache. No dizziness. No chest pain. No palpitations. PHYSICAL EXAMINATION: VITAL SIGNS: Blood pressure 110/54, pulse 90, temperature 98.1, and oxygen saturation 94%. HEENT: Head; normocephalic and atraumatic. Eyes; PERRLA. Extraocular muscles intact. Conjunctivae clear. Nose patent. Mucous membranes moist. NECK: Supple. No carotid bruit. No JVD. No thyromegaly. CHEST: Bilaterally symmetrical. LUNGS: Diffuse wheezing bilaterally. Few rhonchi. HEART: S1 and S2 positive. ABDOMEN: Soft and nontender. No organomegaly. EXTREMITIES: No edema. No cyanosis. NEUROLOGIC: The patient is awake and alert. Follows simple commands. MEDICATIONS: Mucomyst, aspirin, Lipitor, Zithromax, Pulmicort, Wellbutrin, Colace, Neurontin, hydrochlorothiazide, Atrovent, Xopenex, Ativan, Solu-Medrol, Singulair, nicotine patch, and Protonix. LABORATORY DATA: We do not have recent labs today, but I reviewed the old labs. ASSESSMENT AND PLAN: Ms. Araceli Mulligan is a 58-year-old lady with chronic obstructive pulmonary disease exacerbation, essential tremors, active smoker, gastroesophageal reflux disease, and chronic pain syndrome. Continue nicotine patch, urged to quit smoking. Continue bronchodilators. History of parkinsonism. She is under the care of Dr. Doll. Getting Lovenox for deep venous thrombosis, thrombosis. Gastrointestinal prophylaxis. Length of time discussion done with the patient, education done for smoking. Repeat labs. We will follow up. Hilary Oliveira MD
[2019-03-02 22:45] LABS: URINE BILIRUBIN NEGATIVE (NEGATIVE); URINE BLOOD SMALL (NEGATIVE); URINE GLUCOSE (UA) NEGATIVE (NEGATIVE); URINE LEUKOCYTE ESTERASE MODERATE Leu/uL (NEGATIVE); URINE PROTEIN NEGATIVE mg/dL (<30 mg/dL); URINE UROBILINOGEN 0.2 E.U./dL (<1 E.U./dL)
[2019-03-02 22:47] LABS: URINE APPEARANCE CLEAR (CLEAR); URINE COLOR YELLOW (YELLOW)
[2019-03-02 22:51] LABS: URINE RBC 0 - 2 /hpf (0-2)
[2019-03-03] MEDS: MethylPREDNISolone 40 mg Vial IVP SCH ×3 (00:12→11:37)
[2019-03-03] MEDS: Budesonide 0.5 mg/2 ml Inhal Susp UD IH SCH ×2 (02:00→07:45)
[2019-03-03] MEDS: Acetylcysteine 20% Inhal Soln (4ml) INH SCH ×3 (02:00→13:14)
[2019-03-03] MEDS: Pantoprazole 20 mg EC Tab PO SCH (05:49)
[2019-03-03 06:55] LABS: IRON 67 ug/dL (45-180)
[2019-03-03 07:05] LABS: % IRON SATURATION 21 % (20-55); TOTAL IRON BINDING CAPACITY 324 ug/dL (265-497)
[2019-03-03 07:39] LABS: BLOOD UREA NITROGEN 19 mg/dL (7-21); CALCIUM 8.8 mg/dL (8.4-10.5); GFR NON-AFRICAN AMERICAN > 60
[2019-03-03] MEDS: Ipratropium 0.02% Inhal Soln (0.5 mg/2.5 ml) UD IH SCH ×2 (07:45→13:14)
[2019-03-03] MEDS: Levalbuterol 0.63 MG/3 ML Inhal Soln UD IH SCH ×2 (07:45→13:14)
[2019-03-03 08:29] VITALS: BP 120/71; PULSE 87; RESP 18; TEMP 97.3; O2SAT 93
[2019-03-03] MEDS: Azithromycin 500MG/NS 250ml 500 MG/250 ML BAG IVPB SCH (09:19)
[2019-03-03] MEDS: buPROPion SR 150 MG TABLET PO SCH (09:21)
[2019-03-03] MEDS ORDERED: Enoxaparin 40 mg Syringe SC SCH (10:00)
--- NOTE | 2019-03-03 11:42 | CP.PCM.PCO ---
Physician Communication Note - Physician Communication Note Physician Communication Note: COPD exac,wheezes,rhales improved,on solumedrol 40 q6,taper per pulm
--- NOTE | 2019-03-03 12:44 | PN ---
DATE: 03/03/2019 REFERRING PHYSICIAN: Hilary Oliveira MD SUBJECTIVE: The patient is seen sitting in armchair in room, states that she feels much better today. Cough and shortness of breath are better. No headache, rhinitis, chest pain, abdominal pain, nausea, vomiting, diarrhea, leg pain or leg swelling reported. OBJECTIVE: GENERAL: No acute distress. VITAL SIGNS: Blood pressure 120/71, pulse 87, temperature 97.3, oxygen saturation 93%. HEENT: Moist mucous membranes. Crowded airway. NECK: Supple. No JVD. LUNGS: Decreased wheezing, few rhonchi. CARDIOVASCULAR: S1, S2. ABDOMEN: Soft, nontender. No distention. No organomegaly. EXTREMITIES: No bilateral lower extremity edema. NEUROLOGIC: Awake, alert, verbal. Following commands. MEDICATIONS: Reviewed. Mucomyst 3 mL inhalation 3 times a day, aspirin 81 mg daily, Lipitor 10 mg at dinner, Zithromax 500 mg daily, Pulmicort 0.5 mg inhalation 3 times a day, Wellbutrin 150 mg twice a day, Colace 100 mg twice a day, Lovenox 40 mg subcu daily, gabapentin 300 mg daily, hydrochlorothiazide 25 mg daily, Atrovent 0.5 mg inhalation 3 times a day, Xopenex 0.63 mg inhalation 3 times a day, Ativan 1 mg every 6 hours p.r.n., Solu-Medrol 40 mg IV push every 6 hours, Singulair 10 mg daily, nicotine patch transdermal daily, Protonix 20 mg twice a day. LABORATORY DATA: Reviewed. Sodium 138, potassium 4.1, chloride 102, carbon dioxide 27, anion gap 13, BUN 19, creatinine 0.8, GFR greater than 60, random glucose 104, calcium 8.8. TSH 0.23. Iron 67, TIBC of 324, percent saturation 21. Urine blood, small, urine leukocyte esterase moderate. Blood cultures preliminary no growth after 24 hours. IMPRESSION AND PLAN: Chronic obstructive lung disease exacerbation, essential tremor, active smoker, gastroesophageal reflux disease, chronic pain syndrome. Continue to encourage smoking cessation. Continue Nicoderm patch, inhaled bronchodilators, leukotriene inhibitors, gastric prophylaxis, deep venous thrombosis prophylaxis. We will decrease Solu-Medrol to 40 mg every 8 hours. Recommend the patient have full pulmonary function test to evaluate extent of chronic lung disease as outpatient. This patient was seen and examined with Dr. Boone. Discussed assessment and plan as described above. This patient was seen and examined with Deshawn Willoughby, nurse practitioner. Discussed assessment and plan as described above. Thank you for this consult. We will follow with you. Deshawn Willoughby APN Tessa Boone MD
[2019-03-03 13:02] LABS: FOLATE 4.8 ng/mL
[2019-03-03] MEDS ORDERED: MethylPREDNISolone 40 mg Vial IVP SCH ×2 (14:00→22:00)
--- NOTE | 2019-03-04 14:22 | DS ---
HOSPITAL COURSE: This is a 58-year-old female, came in with exacerbation of COPD, shortness of breath. She has a past medical history of asthma, nicotine dependence, coronary artery disease, shortness of breath, osteoporosis, hyperlipidemia. Saw the patient today at the bedside. The patient denies chest pain, shortness of breath,abdominal pain, hematuria, or hematochezia. Does report occasional cough nonproductive and some tremors. She has history of Parkinsonian. She reports tremors were getting worse, but they subside as she is completing a task. Tremors are worse at rest. The patient was reporting she wanted to go home today because today was her birthday. Discussed that with the patient, Pulmonology is on the case Frank Sumner APN Hilary Oliveira MD
--- NOTE | 2019-03-04 16:46 | IP.NPCORE ---
COPD Progress Note - COPD Progress Note Plan to assess at outpatient follow up: Yes Symptoms:: Increase in Dyspnea, Cough Initial CXR:: negative, normal results ABG Not Indicated (Symptoms Improved): Yes Nebulizers Q2-4 hrs:: Duonebs/Albuterol Therapy Antibiotics (Name/Dose/Frequency):: Zithromax, 500 IV Daily Antibiotics Not Indicated: No Systemic Steroids w/ methylprednisolone Name/Dose/Frequency:: Solumedrol 40 mg q6 Oxygen Delivery Method: Nasal Cannula Oxygen Flow Rate: 2 Smoking cessation counseling all stages copd exacerbation: Yes
--- NOTE | 2019-03-04 18:24 | DS ---
HISTORY OF PRESENT ILLNESS: This is a 59-year-old patient came in with COPD exacerbation, fatigue, shortness of breath, complains of tremors today. She has a past medical history of parkinsonian disease, asthma, tobacco dependence, diverticulosis, osteoarthritis, hypertension, and chronic pain. The patient was followed by Pulmonology, Cardiology. I saw the patient today at the bedside. She is alert and oriented today. The patient reports having tremors. She denies shortness of breath, chest pain, abdominal pain, hematuria, or hematochezia. The patient also reports daily conversing. She wanted to go home. Discussed discharge plan with the patient. PHYSICAL EXAMINATION VITAL SIGNS: Temperature 98.6, pulse rate 74, blood pressure 124/85, respirations 18, and sating at 96% to 97% O2 at 2 liters nasal cannula. GENERAL APPEARANCE: No acute distress, chronically ill. HEENT: Normocephalic, atraumatic. PERRLA. Mucous membranes moist. NECK: Supple. Normal inspection. RESPIRATORY: Slightly clear with cough. Occasionally nonproductive cough. CARDIOVASCULAR: S1 and S2. No JVD. No murmur. No gallop. GASTROINTESTINAL: Abdomen is soft. Nontender. No guarding. Positive bowel sounds. No organomegaly. SKIN: Intact. No calf tenderness. No cyanosis. No edema. NEUROLOGIC: The patient is alert and oriented x3. Cranial nerves II through XII intact. No cognitive deficit. MEDICATIONS: Albuterol inhaler, Lipitor, carbidopa and levodopa, Neurontin, Singulair, Zithromax, and prednisone 10 mg taper. LABORATORY DATA: White blood cells 6.5, hemoglobin 13, hematocrit 39.9, platelet count 331. Sodium 138, potassium 4.1, carbon dioxide 27, BUN 19, creatinine 0.8, GFR was 60, hemoglobin A1c 5.8, magnesium 1.8. ASSESSMENT AND PLAN: This is a 59-year-old female came in with chronic obstructive pulmonary disease exacerbation. She was seen by Cardiology. She was followed by Pulmonology. The patient shortness of breath. The patient was started on IV antibiotics tapered down p.o. antibiotics. She was receiving IV methylprednisolone, Solu-Medrol. The patient will be discharged today to home with prednisone taper, antibiotics p.o. We will follow up with the patient in office. Frank Sumner APN Hilary Oliveira MD
== END 2019-03-03 16:33 | disposition home or self-care (01) | DRG 192 ==
LOC: ED 11:49 → ERH 13:51 → 3RNO 14:59 → OBSVTOIN 03-01 18:11
PROVIDERS: ADMIT Internal Medicine; ATTEND Internal Medicine
DX: J44.1 Chronic obstructive pulmonary disease with (acute) exacerbation (principal); F17.210 Nicotine dependence, cigarettes, uncomplicated; G20 Parkinson's disease; K21.9 Gastro-esophageal reflux disease without esophagitis; M81.0 Age-related osteoporosis without current pathological fracture; G89.4 Chronic pain syndrome; G25.0 Essential tremor; M19.90 Unspecified osteoarthritis, unspecified site; Z90.81 Acquired absence of spleen; Z91.19 Patient's noncompliance with other medical treatment and regimen